=== PATIENT | female | born 1980 | race Caucasian/White ===

== ENCOUNTER 2017-01-13 13:47 | Emergency (ER) | payer MEDICAID, OTHER ==
[~2017-01-13] VITALS: Ht 170.2 cm; Wt 53.2 kg
[~2017-01-13 13:47] MED LIST: HYDR-4246 PO; IBUP-1547 PO; PREN-92 PO; PROM25TA7
[2017-01-13 13:50] VITALS: Ht 170.2 cm; Wt 53.2 kg
--- OUTSIDE RECORDS SUMMARY | 2017-01-13 13:51 | XMS REPORT | Continuity of Care Document ---
Author Author [facility] Organization [facility] Address Unknown Phone Unavailable Support Name Relationship Address Phone LUZ BENDER MD Caregiver [address] [place] [address] [place] [address] Unavailable ELOY BUNN MD Caregiver Unknown Unavailable MARIA ISABEL ALVARENGA Next Of Kin [address], [place] [id number] Insurance Providers Guarantor Henrique Alvarenga Address [address] [place] [id number] CP Email DENIED TO PT PORTAL Payer [facility] Policy Number [id number] Subscriber's Name TeaganHenrique M Relationship 18 Self Effective Date 16 Expiration Date 16 Payer [facility] Policy Number [id number] Subscriber's Name Jaspal Fierro Riya Relationship 29 Significant Other Group Number [id number] Advance Directives Directive Response Recorded Date/Time Advanced Directives Type None 02/28/14 6:24am Ordered Resuscitation Status Full Code 02/28/14 6:07am Resuscitation Documents on File No 02/28/14 6:24am DPOA for Healthcare Only No 08/22/16 8:07pm Living Will No 08/22/16 8:07pm Advanced Directive or Resuscitation Comments Full Code 08/14/16 3:50pm Problems Active Problems Medical Problem Onset Date Status Vaginal delivery 03/02/2014 Acute Medications Current Home Medications Medication Dose Units Route Directions Days Qty Instructions Start Date Hydrocodone/Acetaminophen ([place] 5-325 Tablet) 5-325 Tablet 1-2 Tab Oral Every 4 Hours as needed for Pain 20 Tablet 08/23/16 Ibuprofen 800 Mg Tablet 800 Mg Oral Every 8 Hours as needed for Pain 30 Tablet 08/23/16 Vits W-Ca,Fe,Fa(<1MG) ( Vitamins) 1 Tab Tablet 1 Tab Oral Daily 02/08/14 Promethazine Hcl 25 Mg Tablet 08/14/16 Past Home Medications Medication Directions Ordered Status Ferrous Sulfate (Iron) 1 Tab Tablet, 1 Tab Oral Daily 01/30/10 Discontinued Social History Social History Problem Response Recorded Date/Time Onset Date Status Reason for Hospitalization 08/23/2016 7:59pm Not Applicable Not Applicable Hx Substance Use No 08/22/2016 8:09pm Not Applicable Not Applicable Hx Alcohol Use No 01/30/2010 6:30am Not Applicable Not Applicable Has the pt used tobacco in the last 12 months No 08/22/2016 8:09pm Not Applicable Not Applicable Query Response Start Date Stop Date Smoking Status Former smoker Hospital Discharge Instructions Instructions: Care Instructions: Reason for Hospitalization: I was in the hospital because (patient own words): to have a baby Discharge Diet: regular Discharge Activity: as reviewed Follow Up Appointments: 4-6 weeks sooner if needed Pending Lab / Results: No Pending Lab Wound/Incision Care: n/a Pain Management/Treatment: RXs provided Expected Signs/Symptoms: as reviewed Notify Physician If: any concerns Temp>100.5 During Business Hours:: Please call the physician's office at [phone] After Business Hours:: Please call [phone] and have the hydro electric station operator page the physician. Condition at time of discharge: Good Plan of Care Discharge Date 08/23/16 10:38pm Disposition 01 DISCHARGED HOME, SELF-CARE Instructions/Education Provided [facility] Vaginal Delivery Prescriptions See Medication Section Care Plan and Goals See Discharge Instructions Section Functional Status Query Response Date Recorded Mobility Status Ambulatory August 23, 2016 7:59pm Assistive Devices None August 23, 2016 7:59pm Activity Limitations None August 23, 2016 7:59pm Feeding Ability Independent August 23, 2016 7:59pm Toileting Ability Independent August 23, 2016 7:59pm Grooming Ability Independent August 23, 2016 7:59pm Dressing Ability Independent August 23, 2016 7:59pm Driving Ability Independent August 23, 2016 7:59pm Housework Ability Independent August 23, 2016 7:59pm Meal Preparation Ability Independent August 23, 2016 7:59pm Stair Climbing Ability Independent August 23, 2016 7:59pm Ability to complete ADL's impeded by No change August 23, 2016 7:59pm Cognitive/Perceptual Impairments None August 23, 2016 7:59pm Preferred Method of Learning Reading Demonstration Listening August 22, 2016 9:25pm Allergies, Adverse Reactions, Alerts Allergen Type Severity Reaction Status Last Updated ranitidine HCl Allergy Intermediate hives, etc Active 08/22/16 Immunizations Query Response on File Recorded Date/Time Hx Influenza Vaccination Y Fall, 201202/28/14 6:14am Hx Pneumococcal Vaccination No 01/30/10 6:30am Hx Influenza Vaccination Y Fall, 201202/28/14 6:14am Influenza Vaccine Hx 06/13/16 08/22/16 8:09pm Tdap Vaccine Hx 07/21/16 08/22/16 8:09pm Vital Signs Acute Vital Signs Vital Response Date/Time Temperature (Fahrenheit) 97.4 deg F (96.8 - 99.1) 08/23/2016 10:20pm Temperature (Calculated Celsius) 36.75591 degrees C (36.0 - 37.3) 08/23/2016 10:20pm Pulse Rate (adult) 71 bpm (60 - 100) 08/23/2016 10:20pm Respiratory Rate 16 breaths/min (10 - 20) 08/23/2016 10:20pm O2 Sat by Pulse Oximetry 98 % (90 - 100) 08/23/2016 10:20pm Oxygen Delivery Method Room Air 08/23/2016 10:20pm Blood Pressure 144/78 mm Hg 08/23/2016 10:20pm Blood Pressure Source Automatic Cuff 08/23/2016 10:20pm Height (Feet) 5 feet 08/22/2016 8:07pm Height (Inches) 7.00 inches 08/22/2016 8:07pm Weight (Kilograms) 79.950 kg 08/22/2016 8:07pm Height 5 ft 7 in 08/14/2016 3:50pm Weight 176.26 lb 08/22/2016 8:07pm Body Mass Index 27.0 kg/m^2 08/22/2016 8:07pm Results Laboratory Results Test Name Result Units Flags Reference Collection Date/Time Result Date/ Time Comments White Blood Count 9.4 T/MM3 4.5-11.0 08/22/2016 7:47pm 08/22/2016 8: 01pm Red Blood Count 4.06 M/MM3 4.00-5.20 08/22/2016 7:47pm 08/22/2016 8: 01pm Hemoglobin 11.5 GM/DL L -08/22/2016 7:47pm 08/22/2016 8:01pm Hematocrit 35.9 % L 36-46 08/22/2016 7:47pm 08/22/2016 8:01pm Mean Corpuscular Volume 88.4 UM3 80-100 08/22/2016 7:47pm 08/22/2016 8: 01pm Mean Corpuscular Hemoglobin 28.3 UUG 26-34 08/22/2016 7:47pm 2015 8:01pm Mean Corpuscular Hemoglobin Concent 32.0 GM/DL 31-37 08/22/2016 7:47pm 08/22/2016 8:01pm RDW Standard Deviation 44.1 FL 36.9-50.2 08/22/2016 7:47pm 08/22/2016 8 :01pm Platelet Count 187 T/MM3 130-400 08/22/2016 7:47pm 08/22/2016 8:01pm Mean Platelet Volume 10.1 UM3 9.4-12.4 08/22/2016 7:47pm 08/22/2016 8: 01pm Procedures No known history of procedures. Encounters Encounter Location Arrival/Admit Date Discharge/Depart Date Attending Provider Discharged Inpatient [facility] 08/22/16 7:10pm 08/23/16 10:38pm LUZ BENDER MD
[2017-01-13] MEDS ORDERED: [UNRECOGNIZED DRUG - REMARK] PO (14:13)
[2017-01-13] MEDS ORDERED: LORA10TA7 PO (14:15)
[2017-01-13] MEDS ORDERED: FLUT15.88 IH (14:16)
--- NOTE | 2017-01-13 15:00 | ERPDOC ---
Departure Disposition Decision Date: January 13, 2017 Disposition Decision Time: 14:56 Disposition: 01 DISCHARGED HOME, SELF-CARE Impression Impression Impression: Primary Impression: Urticaria Severity: Mild Condition: Improved Seen By: Physician only Referrals: [facility] Patient Instructions: Acute Rash (ED) Problems/Meds/Labs Reviewed?: Yes Medications reviewed and manag: Yes Departure Forms: Return to Work/School Permit Return to Work/School Date: January 14, 2017 Follow up care ordered?: Yes Mental Status: Alert, Oriented Scripts Methylprednisolone (Medrol) 4 Mg Tab.ds.pk 4 MG PO DIRECTED for RASH, #1 0 Refills Prov: JESSI PAYAN DO 01/13/17 HPI - Skin General General Chief Complaint: Skin Rash/Abscess Stated Complaint: STOMACH CRAMPS, LOOSE BOWLS, POSSIBLE HIVES Time Seen by Provider: 13:49 Source: patient (Patient presents to the ER with a urticarial rash to her torso , arms and legs, without a cause identified. Patient has not tried OTC medications because she is . ), other (Patient also reports a 1-2 day complaint of mild intermittant diarrhea, without blood or abdominal pain) Exam Limitations: no limitations HPI - Skin General Occurred At: home Onset: Changing over time Duration: other Pain Scale: Now: 0/10 Location: torso, extremities Possible Cause: no cause identified Modifying Factors: IMPROVES WITH: other (Has not tried anything) Associated Symptoms: hives, malaise, DENIES: blisters, change in skin texture, edema, fever, flushing, headache, jaundice, nasal congestion, numbness, pallor, paresthesia, petechiae, rash, sore throat, swelling/mass/lumps, tingling Hx of Similar Symptoms: Yes Allergies: Coded Allergies: ranitidine HCl (Verified Allergy, Intermediate, hives, etc, 08/22/16) Past History Past Medical History Pt denies signifigant PMH Hx Echocardiogram: No Surgical History Denies Surgeries Vaccines Hx Influenza Vaccination: Yes (2012) Hx Pneumococcal Vaccination: No Social History Substance Use Type: does not use Alcohol Intake: none Housing: house Service: No Current Occupational Status: employed Occupational Hazard: No Advance Directives: Yes Full Code Record Review Pertinent history updated: Yes Review of Systems Constitutional Constitutional: DENIES: chills, fever Eyes Lids/Accessories: DENIES: erythema, swelling ENMT Ears: DENIES: erythema, pain Balance: DENIES: ataxia, vertigo Sinuses: DENIES: congestion, rhinorrhea Mouth/Throat: DENIES: sore throat Cardiovascular Cardiac: DENIES: chest pain, dyspnea on exertion, orthopnea Rhythm/Rate: DENIES: tachycardia Pulmonary Respiratory: DENIES: cough, dyspnea, sputum GI Upper Abdomen: nausea, DENIES: pain, vomiting Lower Abdomen: diarrhea, DENIES: constipation, pain General: DENIES: dysuria Musculoskeletal General: DENIES: cramps, pain, weakness Integumentary Skin: color change, itching, rash, see HPI Neurological General: DENIES: headache, numbness, weakness Psychiatric Psychiatric: DENIES: anxiety, depression, nervousness Hematologic/Lymphatic Hematologic/Lymphatic: DENIES: anemia Allergic/Immunological Allergic/Immunoligical: DENIES: sneezing All other Systems All Other Systems: Reviewed and Negative Physical Exam General General Nourishment: well nourished, well developed, appears stated age, no acute distress, adult General Body Habitus: well groomed Vitals and Pain First Documented Vital Signs Date Time Temp Pulse Resp B/P Pulse Ox O2 Delivery O2 Flow Rate FiO2 01/13/17 13:50 98.2 111 16 120/83 98 Room Air Weight: Kilograms: 53.200 Height (feet): 5 Height (inches): 7.00 Triage Pain Scale: RN VS reviewed by Provider: Yes Eyes (brief) Eyes Brief: found: EOMI, PERRL ENMT (brief) ENMT Brief: FOUND: mucosa moist Neck (brief) Neck: FOUND: trachea midline, NOT FOUND: tracheal deviation Respiratory (brief) Respiratory: FOUND: clear all bruno, equal bilaterally Cardiovascular (brief) Cardiac: FOUND: regular rate, regular rhythm Capillary Refill: <2 sec Pulses: all distal extremities, equal, strong Abdomen (brief) Abdominal Brief: FOUND: bowel normo active x4, soft, NOT FOUND: distended, tender Lymphatic (brief) Lymphatic Brief: NOT FOUND: adenopathy Musculoskeletal (brief) Musculoskeletal Brief: NOT FOUND: spasm, tenderness Integumentary (brief) Integumentary Brief: FOUND: other (Refer to HPI), pink, rash (refer to HPI), warm Neurologic (brief) Neurological Brief: FOUND: CN w/o gross def to obs, gait w/o gross def to obs, motor-no gross deficits, sensory-no gross deficits, NOT FOUND: ataxia Psychiatric (brief) Psychiatric Brief: FOUND: alert, attentive, normal affect, oriented Differential Diagnoses Considering: Abrasion, Abscess, Cellulitis, Contact Dermatitis, Eczema, Erythema Multiforme, Folliculitis, Furuncle, [place] Purpura, Hives/ Urticaria, Poison [place] Dermatitis, Psoriasis, Rosacea, Tinea Corporis, Tinea Cruris, Tinea Manus, Tinea Pedis, Tinea Versicolor, Lyme's Disease, [place] Spotted Fe, Scabies, Camargo-Rambo Syndrome, Toxic Epidermal Necrolysi, Viral Exanthem, Other Progress Progress Progress Patient is refusing labs and medications in the ER Patient is refusing Benadryl for home use Patient will agree to a Medrol Dose pack Consult/PCP Consult/PCP : Physician Contacted: Lucas Edmonds Time Called: 14:45 Discussion Details Patient is allergic to H2 adán Benadryl, are possible mild risks with Benadryl Medrol, risks minimal, except at high dosages JESSI PAYAN DO January 13, 2017 15:00
[2017-01-13] MEDS ORDERED: METH4TAB3 PO (15:01)
[2017-01-13 15:10] VITALS: BP 115/79; PULSE 98; RESP 16; TEMP 98.2; O2SAT 97
== END 2017-01-13 15:10 | disposition home or self-care (01) ==
LOC: ED 13:47
DX: L50.9 Urticaria, unspecified (principal); R19.7 Diarrhea, unspecified; R11.0 Nausea